=== PATIENT | male | born 1975 | race Two or more races ===

== ENCOUNTER 2025-02-16 09:48 | Emergency (ER) | payer MEDICAID, SELFPAY ==
[2025-02-16 09:50] VITALS: BMI 32.8
[2025-02-16 10:16] VITALS: BP 151/80; PULSE 84; RESP 18; TEMP 36.6; O2SAT 95
--- NOTE | 2025-02-16 10:21 | PD.EDRME ---
Rapid Medical Screening Exam E Arrival date/time: 02/16/25 09:48 This is a 49-year-old male that comes in with complaints of bilateral leg pain. Patient states is been chronic. Patient also complains of abdominal pain and nauseated. Patient states that he had diarrhea last week but no longer has diarrhea. Patient comes in with with similar symptoms. I have greeted and performed a focused initial assessment of this patient. Initial appropriate labs ordered at this time. A comprehensive ED assessment and evaluation of the patient and analysis of all test and completion of medical decision making process will be conducted by additional ED provider. Chief Complaint: General Adult/Misc Complain Time Seen by Provider: 02/16/25 10:02 Vital signs: Vital Signs Temperature 98 F 02/16/25 10:16 Pulse Rate 84 02/16/25 10:16 Respiratory Rate 18 02/16/25 10:16 Blood Pressure 151/80 H 02/16/25 10:16 Pulse Oximetry (%) 95 02/16/25 10:16 Oxygen Delivery Method Room Air 02/16/25 10:16
[2025-02-16] MEDS: IBUPROFEN TAB 400 MG TABLET 800 MG PO (10:25)
[2025-02-16 10:38] LABS: Basophils % (Auto) 0 % (0-2.5); Eosinophils # (Auto) 0.1 Thou/mm3 (0.0-0.5); Eosinophils % (Auto) 1 % (0-10); Hematocrit 42.7 % (41.0-53.0); Hemoglobin 14.9 g/dL (13.5-16.0); Immature Granulocytes % (Auto) 0 % (0-0); Immature Granulocytes Auto 0.04 Thou/mm3 (0.00-0.00); Lymphocytes # (Auto) 1.4 Thou/mm3 (1.0-4.8); Lymphocytes % (Auto) 13 % (10-50); Mean Corpuscular HGB Conc 34.9 g/dl (31.0-37.0); Mean Corpuscular Hemoglobin 28.7 pg (25.0-35.0); Mean Corpuscular Volume 82 fL (80-100); Monocytes # (Auto) 0.7 Thou/mm3 (0.0-0.8); Monocytes % (Auto) 6 % (0-12); Neutrophils # (Auto) 8.4 Thou/mm3 (1.8-7.7); Neutrophils % (Auto) 80 % (37-80); Nucleated Red Blood Cell % 0 /100 WBC (0); Platelet Count 109 Thou/mm3 (140-440); RDW Standard Deviation 38.3 fL (35.1-43.9); Red Blood Count 5.19 Miln/mm3 (4.50-5.90); White Blood Count 10.6 Thou/mm3 (3.8-10.6)
[2025-02-16 10:57] LABS: Collection Type, Urine Voided
[2025-02-16 11:16] LABS: Alanine Aminotransferase 67 U/L (10-49); Albumin, Serum 4.9 gm/dL (3.5-5.0); Albumin/Globulin Ratio 1.4 (1.2-2.2); Alkaline Phosphatase 110 U/L (46-116); Anion Gap 12 (7-16); Aspartate Amino Transferase 34 U/L (0-34); BUN/Creatinine Ratio 12 Ratio (12-20); Bilirubin,Total 0.9 mg/dL (0.3-1.2); Blood Urea Nitrogen 11 mg/dL (9-23); Calcium 8.9 mg/dL (8.3-10.6); Calcium (Corrected) 8.9 mg/dL (8.5-10.1); Carbon Dioxide 24.4 mMol/L (20.0-31.0); Chloride 103 mMol/L (98-107); Creatinine (Component) 0.9 mg/dL (0.6-1.3); Estimated Creatinine Clearance 110.4 mL/min (>60); Globulin 3.4 gm/dL (2.3-3.5); Glucose 104 mg/dL (74-106); Lipase 42 U/L (12-53); Osmolality,Calculated 276 (275-295); Potassium 3.7 mMol/L (3.4-5.1); Sodium 139 mMol/L (136-145); Total Protein 8.3 gm/dL (5.7-8.2); eGFR > 60 See Note
[2025-02-16 11:17] LABS: Bilirubin,Urine Negative (Negative); Blood,Urine 1+ (Negative); Clarity,Urine Turbid (Clear/Hazy); Color,Urine Yellow (Lt Yel-Yel); Glucose, Urine Negative (Negative); Ketones,Urine Negative (Negative); Leukocyte Esterase,Urine Positive (Negative); Nitrite,Urine Negative (Negative); Protein,Urine 1+ (Neg - Trace); RBC,Urine 9 /hpf (0-3); Specific Gravity,Urine 1.032 (1.001-1.035); Squamous Epithelial Cell,Urine < 1 /hpf (0-5); WBC,Urine 246 /hpf (0-5)
[2025-02-16 11:19] LABS: Culture Indicated,Urine Yes
[2025-02-16 15:16] VITALS: BP 167/97; PULSE 76; RESP 18; TEMP 36.8; O2SAT 97
--- NOTE | 2025-02-16 16:42 | EDNOTE_ITS ---
<Statement entered by Emerita Choi MD - 02/17/25 09:01> As co-signing physician, I was present and available for consult prn. I concur with the plan and care as documented by the midlevel provider. ED General RME/HPI General Chief complaint: General Adult/Misc Complain Stated complaint: GAVIN LEG PAIN/FEVER VOMITING X3 DAYS Time Seen by Provider: 02/16/25 10:02 Arrival date/time: 02/16/25 09:48 CC: Lower abdominal pain with nausea and denies any vomiting, 1 week of diarrhea in the past but resolved at this point in time. Patient also notes he has a small amount of dysuria. Noticed that he has dark urine . The patient is afebrile nontoxic-appearing not in any acute distress. RME / HPI RME / HPI narrative: 02/16/25 09:48 This is a 49-year-old male that comes in with complaints of bilateral leg pain. Patient states is been chronic. Patient also complains of abdominal pain and nauseated. Patient states that he had diarrhea last week but no longer has diarrhea. Patient comes in with with similar symptoms. I have greeted and performed a focused initial assessment of this patient. Initial appropriate labs ordered at this time. A comprehensive ED assessment and evaluation of the patient and analysis of all test and completion of medical decision making process will be conducted by additional ED provider. Related Data Previous Rx's ?Medication ?Instructions ?Recorded ciprofloxacin HCl 500 mg tablet 500 mg PO BID #14 tabs 02/16/25 (Cipro) ondansetron 4 mg disintegrating 4 mg PO Q8H #10 tabs 0 02/16/25 tablet tamsulosin 0.4 mg capsule (Flomax) 0.4 mg PO QDAY #14 caps 02/16/25 Allergies Allergy/AdvReac Type Severity Reaction Status Date / Time acetaminophen (From [place]) Allergy Intermediate Vomiting Verified 01/21/23 15:10 hydrocodone (From [place]) Allergy Intermediate Vomiting Verified 01/21/23 15:10 Review of Systems Review of Systems Narrative Review of Systems: GEN: No fever, no chills, no weight loss EYES: No discharge, no visual changes, no pain HEENT: No ear pain, no congestion, no sore throat PULM: No shortness of breath, no cough, no congestion CV: No chest pain, no dyspnea on exertion, no palpitations GI: + nausea, no vomiting, no diarrhea, no pain, no constipation : No frequency, no urgency, no dysuria MUSC/SKEL: No joint pain, no back pain SKIN: No rash PSYCH: No hallucinations, no depression HEME/LYMPH: No easy bleeding or bruising tendencies NEURO: No weakness, no headache Past Medical History Past Medical History NEUROLOGIC: Negative Seizures CARDIAC: Negative Congestive Heart Failure RESPIRATORY: Negative Chronic Obstructive Pulmonary Disease (COPD) GENITOURINARY: Negative Renal Disease ENDOCRINE: Negative Diabetes Mellitus Type 1 or Diabetes Mellitus Type 2 OTHER HISTORY: Negative Blood Transfusions, Blood Transfusion Reaction or Anesthesia Reactions Social History SMOKING STATUS: Never smoker SECOND HAND EXPOSURE: No SUBSTANCE USE: does not use ED Exam Narrative Physical exam: [General: Obese not in any acute distress Head normocephalic HEENT: Within acceptable limits Neck is supple nontender Chest equal chest rise nontender to palpation Respiratory: Clear to auscultation no wheezes crackles or rubs CV: Rate rhythm is regular no murmurs rubs or clicks Abdomen is distended secondary to body habitus soft nontender no masses positive bowel sounds all 4 quadrants Back: No CVA tenderness no spinous process tenderness from cervical spine thora cic and lumbar spine Skin: Intact no petechiae rash induration ulceration or crepitus Extremities: Moving all extremity against resistance cap refill less than 2 seconds neurosensory intact Neuro: Awake alert oriented x3 Glascow coma 15 no focal deficits] Course Course Course Narrative: Patient is suspicious for urinary tract infection. This time patient will be given antibiotics antinausea medicine and discharged home. Quality Measures none Orders Category Date Time Status Bedside COVID-19 Antigen Test NOW Care 02/16/25 11:53 Active Bedside Influenza A&B Antigen Test NOW Care 02/16/25 11:53 Active CBC Stat Lab 02/16/25 10:27 Completed Comprehensive Metabolic Panel Stat Lab 02/16/25 10:27 Completed Lipase Stat Lab 02/16/25 10:27 Completed Urinalysis, C/S if Indicated Stat Lab 02/16/25 10:32 Completed Urine Culture Stat Lab 02/16/25 10:32 Received 1,000 mg IM w/Lido* 1% Med 02/16/25 16:42 Ordered cefTRIAXone [Rocephin] 1,000 mg Lidocaine 1% 20 ml [Xylocaine 1% 20 ML] 2.1 ml IM X1 Ibuprofen Tab [Motrin Tab] Med 02/16/25 10:19 Discontinued 800 mg PO X1 ONE Vital Signs Vital signs: Vital Signs Temperature 98 F 02/16/25 10:16 Pulse Rate 84 02/16/25 10:16 Respiratory Rate 18 02/16/25 10:16 Blood Pressure 151/80 H 02/16/25 10:16 Pulse Oximetry (%) 95 02/16/25 10:16 Oxygen Delivery Method Room Air 02/16/25 10:16 Discharge Plan Plan Patient Disposition: HOME (Self Care) Patient condition on transfer: Stable Prescriptions/Referrals Prescriptions/Med Rec: New ciprofloxacin HCl [Cipro] 500 mg tablet 500 mg PO BID Qty: 14 0RF ondansetron 4 mg tablet,disintegrating 4 mg PO Q8H Qty: 10 0RF tamsulosin [Flomax] 0.4 mg capsule 0.4 mg PO QDAY Qty: 14 0RF Referrals: Koby Hdz MD [Physician] - In 1 week No Primary/Family,Physician [Primary Care Provider] - In 1 week Problem List Clinical Impression: Acute UTI, Nausea Patient/Caregiver Discharge Instructions Education Materials: ED Bladder Infection, Male (Adult) Print Language: Yoruba Stand Alone Forms: Ana Award Info., Work/School Release, Patient Portal Info Letter PA/TONY Supervising Physician PA/TONY Supervising Physician: Craig Dean ENP [facility] Clinical Information Provided by: patient Medical Records reviewed [facility] Meds/Rx considered, not ordered None Labs/Rad/Tests considered, not ordered None Chronic Illness/Social Conditions which may negatively complicate care or outcome(s)-explain: None or not applicable EKG EKG not done Labs Labs: Interpreted by ia Lab(s) Interpretation(s): CBC shows no acute leukocytosis anemia thrombocytopenia CMP shows no acute electrolyte imbalances renal impairment transaminitis or T. bili elevation Urine is turbid 1+ protein 1+ blood WBCs of 246 leukocyte esterase positive. Medication Administration(s) Medication Administration History Discontinued Medications Ibuprofen (Ibuprofen Tab 400 Mg Tablet) 800 mg PO X1 ONE Stop: 02/16/25 10:20 Last Admin: 02/16/25 10:25 Dose: 800 mg Documented By: JOHN
[2025-02-16 17:00] VITALS: BP 153/91; PULSE 76; RESP 18; TEMP 36.5; O2SAT 96
[2025-02-16] MEDS: cefTRIAXone 1,000 MG, LIDOCAINE 1% 20 ML 2.1 ML IM (17:16)
[2025-02-16 17:40] VITALS: BP 153/71; PULSE 78; RESP 18; TEMP 36.5; O2SAT 95
== END 2025-02-16 17:40 | disposition home or self-care (01) ==
PROVIDERS: Nurse Practitioner Family; Emergency Provider Emergency Medicine
DX: N39.0 Urinary tract infection, site not specified (principal); M79.605 Pain in left leg; M79.604 Pain in right leg; R11.0 Nausea
CPT/HCPCS: 36415; 80053; 81001; 83690; 85025; 87086; 87400; 87811; 96372; 99283; J0696; J3490; A9270